=== PATIENT | male | born 1950 | race Caucasian/White ===

== ENCOUNTER 2020-08-25 00:44 | Emergency (ER) | payer MEDICARE ==
[2020-08-25] MEDS ORDERED: LISINOPRIL5 MG PO (00:51)
[2020-08-25] MEDS ORDERED: WARFARIN SODIUM4 MG PO (00:52)
[2020-08-25] MEDS ORDERED: PRAVASTATIN SOD10 MG PO (00:52)
[2020-08-25] MEDS ORDERED: VENLAFAXINE H37.5 M5 PO (00:52)
[2020-08-25] MEDS ORDERED: OMEPRAZOLE MAGN20 MG PO (00:52)
[2020-08-25] MEDS ORDERED: ROBAXIN-750750 MG PO (02:49)
== END 2020-08-25 03:35 | disposition home or self-care (01) ==
LOC: ED 00:44
DX: M54.42 Lumbago with sciatica, left side (principal)

== ENCOUNTER → 2020-09-09 | Outpatient (CLI) | payer MEDICARE ==
[~2020-09-09] MED LIST: LISINOPRIL5 MG PO; OMEPRAZOLE MAGN20 MG PO; PRAVASTATIN SOD10 MG PO; ROBAXIN-750750 MG PO; VENLAFAXINE H37.5 M5 PO; WARFARIN SODIUM4 MG PO
[2020-09-09 15:43] LABS: BILIRUBIN 1+ (Negative); BLOOD 2+ (Negative); CLARITY Turbid (Clear); COLOR Red (Yellow); GLUCOSE Negative (Negative); KETONE Negative (Negative); LEUKO ESTERASE 2+ (Negative); NITRITE Positive (Negative); SPECIFIC GRAVITY >= 1.030 (1.001-1.030); UROBILINOGEN 0.2 E.U./dl (0.0-1.0)
[2020-09-09 15:45] LABS: HEMATOCRIT 28.5 % (42.0-52.0); MEAN CELL VOLUME 103.3 fl (80.0-94.0); MEAN CORPUSCULAR HGB 30.1 pg (27.0-31.0); MEAN CORPUSCULAR HGB CONC 29.1 g/dl (33.0-37.0); MEAN PLATELET VOLUME 10.9 fl (9.6-12.3); RED BLOOD COUNT 2.76 10*6/uL (4.50-5.90); RED CELL DISTRI WIDTH 17.7 % (0-14.5); WHITE BLOOD COUNT 5.6 10*3/uL (4.8-10.8)
[2020-09-09 15:55] LABS: INTERNATIONAL NORM RATIO 2.6 (2.0-3.5)
[2020-09-09 16:06] LABS: RBC TNTC rbc/hpf (0-2)
== END | disposition home or self-care (01) ==
LOC: LAB 15:16
PROVIDERS: Physician Assistant Medical; ATTEND Family Medicine
DX: Z51.81 Encounter for therapeutic drug level monitoring (principal); R31.9 Hematuria, unspecified; Z79.01 Long term (current) use of anticoagulants

== ENCOUNTER 2022-01-11 01:03 | Emergency (ER) | payer MEDICARE ==
[~2022-01-11] VITALS: Ht 172.7 cm; Wt 85.3 kg
[~2022-01-11 01:03] MED LIST changes: +AMMONIUM LACTA227 GM T; +ANORO ELLIPTA1 EACH INH; +Bactroban Oint22 GM T; +CEPHALEXIN500 M1 PO; +DOXYCYCLINE100 M3 PO
[2022-01-11] MEDS ORDERED: CEPHALEXIN500 M1 PO (06:54)
== END 2022-01-11 06:28 | disposition home or self-care (01) ==
LOC: ED 01:03
DX: L76.22 Postprocedural hemorrhage of skin and subcutaneous tissue following other procedure (principal); L98.8 Other specified disorders of the skin and subcutaneous tissue; Z87.891 Personal history of nicotine dependence; Z79.01 Long term (current) use of anticoagulants; Z79.899 Other long term (current) drug therapy; Z88.8 Allergy status to other drugs, medicaments and biological substances

== ENCOUNTER 2023-07-03 19:19 | Emergency (ER) | payer MEDICARE ==
[~2023-07-03] VITALS: Ht 175.2 cm
[2023-07-03 20:18] LABS: HEMATOCRIT 32.7 % (42.0-52.0); MEAN CELL VOLUME 93.7 fl (80.0-94.0); MEAN CORPUSCULAR HGB 31.2 pg (27.0-31.0); MEAN CORPUSCULAR HGB CONC 33.3 g/dl (33.0-37.0); MEAN PLATELET VOLUME 12.7 fl (9.6-12.3); PLATELET COUNT AUTOMATED 76 10*3/uL (130-400); RED BLOOD COUNT 3.49 10*6/uL (4.50-5.90); RED CELL DISTRI WIDTH 14.2 % (0-14.5); WHITE BLOOD COUNT 13.1 10*3/uL (4.8-10.8)
[2023-07-03 20:20] LABS: MANUAL DIFF REFLEX YES
[2023-07-03 20:35] LABS: ALKALINE PHOSPHATASE 126 U/L (46-116); BUN 14 mg/dl (9-23); CHLORIDE 97 mmol/L (98-107); LIPASE 29 U/L (12-53); POTASSIUM 3.9 mmol/L (3.4-5.1); SGPT/ALT 24 U/L (5-49); TOTAL PROTEIN 8.4 gm/dL (6.0-8.0)
[2023-07-03 20:41] LABS: ACT PARTIAL THROMBO TIME 74.5 SECONDS (20.0-32.1); INTERNATIONAL NORM RATIO 8.3 (2.0-3.5)
[2023-07-03 20:48] LABS: PLATELET SUFFICIENCY LOW (NORMAL); TOTAL CELLS COUNTED 100 #CELLS
[2023-07-03 20:49] LABS: POLYCHROMASIA SLIGHT
[2023-07-03 20:53] LABS: ROULEAUX SLIGHT
== END 2023-07-03 23:00 | disposition short-term general hospital (02) ==
LOC: ED 19:19
PROVIDERS: Internal Medicine
DX: I62.00 Nontraumatic subdural hemorrhage, unspecified (principal); I60.9 Nontraumatic subarachnoid hemorrhage, unspecified; Z88.8 Allergy status to other drugs, medicaments and biological substances; Z90.49 Acquired absence of other specified parts of digestive tract; Z98.890 Other specified postprocedural states; Z87.891 Personal history of nicotine dependence